=== PATIENT | male | born 1965 | race Caucasian/White ===

== ENCOUNTER 2021-09-14 07:59 | Emergency (ER) | payer BC, SELFPAY ==
[2021-09-14 08:03] VITALS: BP 138/92; PULSE 71; RESP 16; TEMP 36.1; O2SAT 100
--- NOTE | 2021-09-14 08:56 | PC.NURSE ---
Dr. Nicole at bedside to assess pt.
--- NOTE | 2021-09-14 09:22 | ED.ANIMALBIT ---
HPI - Animal Bite General Chief Complaint: Animal Bite Stated Complaint: Animal Bite Time Seen by Provider: 09/14/21 08:59 Related Data Allergies Allergy/AdvReac Type Severity Reaction Status Date / Time Penicillins Allergy Unknown Unknown Verified 02/25/21 15:31 Review of Systems Review of Systems: Pt is a 56 y/o male, presents to ED with concerns he may need a rabies vaccination series after a dog bite to the left biceps region on Monday while attempting to stop a fight between his dog and another, healthy appearing lab. He was wearing a coat at the time of the bite. He had no break in the fabric of his coat. He did not notice that his arm was bleeding or had an injury until he arrived home. He had a tetanus booster yesterday. His encouraged him to seek evaluation today. Constitutional: Constitutional: Reports as per HPI Musculoskeletal: Musculoskeletal: Reports no additional musculoskeletal complaints and Reports as per HPI [facility] Past Medical History Medical History Benign essential HTN Chronic rhinosinusitis Diverticulosis Mixed hyperlipidemia Surgical History Surgical History (Updated 03/07/21 @ 20:08 by Yun May MD) Hx of colonoscopy 2015- repeat in 2025 Family History Family History Grandparent Family history of premature coronary heart disease, Onset Age: 50 Mother Family history of elevated blood lipids Social History Social History (Updated 03/07/21 @ 20:09 by Yun aMy MD) Social History: Smoking status: Former smoker Tobacco type: cigars Second hand tobacco smoke exposure: No Smoking end date: 03/03/17 Alcohol intake: current Alcohol use details: Occasionally Substance use: never Substance use type: does not use Additional occupation/education comments: gas engineer Gender identity (if verbalized by the patient): Male Sexual Orientation (if Verbalized by the Patient): Straight or Heterosexual Spiritual care concerns: No Agree to blood products: Yes Exam Narrative: alert, pleasant, non toxic, appearing, conversant Const: General: cooperative Nutritional Appearance: average body habitus Orientation/consciousness: oriented to person, oriented to place and oriented to time Limitations: no limitations HENMT: Head: normal to inspection Ears: hearing grossly normal bilaterally General nose exam: Normal external nose present Mouth: Yes Normal oral and palatal mucosa present Eyes: General: appearance normal, both eyes and all related structures Conjunctivae: conjunctivae normal Sclera: sclerae normal Neck: Neck: normal visual inspection and no meningeal signs Resp: Effort & Inspection: normal respiratory effort Auscultation: clear to auscultation bilaterally Cardio: Jugular venous distension: no JVD Rhythm: regular rhythm Heart sounds: S1 normal heart sound present and S2 normal heart sound present Peripheral pulses: Peripheral pulses 2+ throughout Skin: General skin exam: ecchymosis (pt has a 3 cm area of ecchymosis to the left medial biceps region) Lesions: other (a scabbed abrasion is noted at the center of the area of ecchymosis. ) Other: no drainage, no streaking, no erythema surrounding abrasion Course Course Emergency Course: Pt has called the health department and is advised rabies vaccinations are not indicated as he is considered low risk, given the provoked incident . He has since opted to decline the rabies series, noting his low risk exposure today Vital Signs Vital signs: Vital Signs Temperature 36.1 C L 09/14/21 08:03 Pulse Rate 71 09/14/21 08:03 Respiratory Rate 16 09/14/21 08:03 Blood Pressure 138/92 H 09/14/21 08:03 Pulse Oximetry 100 09/14/21 08:03 Temperature 36.1 C L 09/14/21 08:03 Pulse Rate 71 09/14/21 08:03 Respiratory Rate 16
[2021-09-14 09:52] VITALS: BP 147/105
== END 2021-09-14 09:52 | disposition home or self-care (01) ==
PROVIDERS: Emergency Provider Nurse Practitioner Family; PCP Family Medicine
DX: S41.152A Open bite of left upper arm, initial encounter (principal); S40.022A Contusion of left upper arm, initial encounter; I10 Essential (primary) hypertension; E78.2 Mixed hyperlipidemia; Z87.891 Personal history of nicotine dependence; W54.0XXA Bitten by dog, initial encounter
CPT/HCPCS: 99282

== ENCOUNTER → 2021-10-01 14:39 | Outpatient (CLI) | payer BC, SELFPAY ==
--- NOTE | ~2021-10-01 | US_ITS ---
EXAMINATION: US soft tissue upper back DATE: 10/01/2021 17:14 INDICATION: Left posterior thorax mass. TECHNIQUE: Multiple grayscale and Doppler ultrasound images of the left posterior thorax were obtaine d. COMPARISON: CT abdomen and pelvis 11/15/2018 FINDINGS: In the left posterior thorax, there is a 4.6 x 3.5 x 1.2 cm hyperechoic subcutaneous mass. IMPRESSION: 1. 4.6 cm hyperechoic subcutaneous mass in left posterior thorax, most likely a lipoma. Reviewed, dictated and finalized at location A.
== END ==
PROVIDERS: PCP Family Medicine; Visit Provider Nurse Practitioner Gerontology
DX: R22.9 Localized swelling, mass and lump, unspecified (principal)
CPT/HCPCS: 76604

== ENCOUNTER 2022-08-30 10:56 | Outpatient (CLI) | payer BC, SELFPAY ==
[2022-08-30 12:08] LABS: Basophils Absolute Auto 0.1 K/mm3 (0.0-0.1); Eosinophils Absolute Auto 0.3 K/mm3 (0-0.3); Eosinophils Percent Auto 4.3 % (0-4.4); Hematocrit 45.9 % (42.0-52.0); Hemoglobin 15.9 g/dL (14.0-18.0); Immature Granulocyte Absolute 0.01 K/mm3 (0.00-0.031); Immature Granulocyte Percent A 0.1 % (0-0.5); Lymphocytes Absolute Auto 2.35 K/mm3 (0.9-3.2); Lymphocytes Percent Auto 32.6 % (18.3-44.2); Mean Corpuscular HGB Conc 34.6 g/dl (32-36); Mean Corpuscular Hemoglobin 30.9 pg (26-34); Mean Corpuscular Volume 89.1 fl (80-100); Mean Platelet Volume 10.5 fl (7.4-10.4); Monocytes Absolute Auto 0.6 K/mm3 (0.1-0.6); Monocytes Percent Auto 7.8 % (2.6-8.5); Neutrophils Absolute Auto 3.9 K/mm3 (1.3-6.7); Neutrophils Percent Auto 54.2 % (45.5-73.1); Platelet Count Result 287 k/mm3 (150-375); Red Blood Count 5.15 M/mm3 (4.6-6.20); Red Cell Distribution Width 12.6 % (11.5-14.5); White Blood Count 7.2 K/mm3 (4.5-10.0)
[2022-08-30 12:18] LABS: Alanine Aminotransferase 51 U/L (6-50); Albumin Level 4.8 g/dL (3.5-5.1); Alkaline Phosphatase 80 U/L (38-126); Amylase 71 U/L (30-110); Anion Gap 8 mmol/L (8-16); Aspartate Amino Transferase 42 U/L (17-59); Bilirubin,Total 0.7 mg/dL (0.2-1.3); Blood Urea Nitrogen 14 mg/dL (9-20); Calcium 9.3 mg/dL (8.4-10.2); Carbon Dioxide 31 mmol/L (22-30); Chloride 101 mmol/L (98-107); Estimated Glomerular Filt Rate > 60; Glucose 101 mg/dL (65-110); Lipase 71 U/L (23-300); Potassium 4.4 mmol/L (3.4-5.0); Sodium 140 mmol/L (137-145)
== END 2022-08-30 10:57 | disposition home or self-care (01) ==
LOC: ANHLAB 10:57
PROVIDERS: PCP Family Medicine; Visit Provider Nurse Practitioner Gerontology
DX: R10.9 Unspecified abdominal pain (principal)
CPT/HCPCS: 36415; 80053; 82150; 83690; 85025

== ENCOUNTER 2022-08-30 14:27 | Outpatient (CLI) | payer BC, SELFPAY ==
--- NOTE | ~2022-08-30 | CT_ITS ---
EXAMINATION: CT abdomen pelvis wo con DATE: 08/30/2022 14:46 INDICATION: Abdominal pain. Blood in stool. TECHNIQUE: Computed tomography (CT) of the abdomen and pelvis was performed without intravenous contr ast. Automated exposure control and iterative reconstruction technique were employed. The dose-length product was 543.67 mGy-cm. COMPARISON: CT abdomen and pelvis 11/15/2018 FINDINGS: The visualized portions of the lung bases are clear without pneumonia or pleural effusion. The heart size is normal. No pericardial effusion. There are cysts in the liver measuring up to 3.8 c m. The gallbladder, pancreas, spleen, and adrenal glands are normal. There are cysts in right kidney measuring up to 12 mm. There is a 14 mm mass in left kidney measuring soft tissue attenuation. There is no urolithiasis. The prostate is moderately enlarged. There is diverticulosis of the colon without evidence of diverticulitis. There are no dilated loops of bowel. The appendix is normal. There are n o pathologically enlarged lymph nodes. There is no free intraperitoneal fluid. There is severe lower lumbar spondylosis. There is moderate thoracic spondylosis. IMPRESSION: 1. No etiology for the patient's symptoms. 2. 14 mm left kidney mass, which may be a hemorrhagic cyst or less likely a neoplasm. Abdomen MRI wit hout and with contrast is recommended. Reviewed, dictated and finalized at location A. [facility]ER IMPRESSION: 1. No etiology for the patient's symptoms. 2. 14 mm left kidney mass, which may be a hemorrhagic cyst or less likely a meera plasm. Abdomen MRI without and with contrast is recommended.
== END 2022-08-30 14:28 ==
PROVIDERS: PCP Family Medicine; Visit Provider Family Medicine
DX: R10.9 Unspecified abdominal pain (principal); N28.89 Other specified disorders of kidney and ureter
CPT/HCPCS: 74176

== ENCOUNTER 2022-09-16 13:30 | Outpatient (CLI) | payer BC, SELFPAY ==
--- NOTE | ~2022-09-16 | MR_ITS ---
EXAMINATION: MR abdomen wo/w con DATE: 09/16/2022 14:27 INDICATION: Other specified disorders of kidney and ureter TECHNIQUE: Magnetic resonance imaging (MRI) of the abdomen was performed without and with 15 mL Multi beka intravenous contrast. Sequences included coronal T2-weighted SS-FSE, coronal and axial FS 2D-F IESTA, axial STIR FSE, axial T2-weighted SS-FSE, axial T2-weighted FS SS-FSE, axial diffusion-weighte d SE, axial dual-echo T1-weighted FSPGR, and axial and coronal T1-weighted LAVA. Postcontrast axial T 1-weighted LAVA images were obtained in a time course. Postcontrast coronal T1-weighted LAVA images w ere obtained. COMPARISON: CT dated 08/30/2022 FINDINGS: Heart size is normal. No pericardial or pleural effusion. There are multiple nonenhancing T2 hyperint ense hepatic and bilateral renal cysts . 1.7 cm nonenhancing T1 hyperintense T2 hypointense proteinac eous/hemorrhagic cyst at the upper pole of the left kidney. Pancreas, spleen and bilateral adrenal gl ands are normal. Visualized portion of the bowels are unremarkable. No pathologically enlarged abdomi nal or upper pelvic lymphadenopathy. Mild lumbar spondylosis with severe spondylosis at L5-S1. Bone marrow signal is normal throughout. IMPRESSION: 1. Multiple hepatic and renal cysts including a 1.7 cm complex proteinaceous/hemorrhagic cyst at the upper pole of the left kidney which correspond to the lesion of concern on prior CT. Reviewed, dictated and finalized at location B. IMPRESSION: 1. Multiple hepatic and renal cysts including a 1.7 cm complex proteinaceous/he morrhagic cyst at the upper pole of the left kidney which correspond to the les ion of concern on prior CT.
== END 2022-09-16 13:31 ==
PROVIDERS: PCP Family Medicine; Visit Provider Nurse Practitioner Gerontology
DX: N28.89 Other specified disorders of kidney and ureter (principal); N28.1 Cyst of kidney, acquired
CPT/HCPCS: 74183; A9577

== ENCOUNTER 2024-11-20 08:21 | Outpatient (CLI) | payer BC, SELFPAY ==
--- NOTE | ~2024-11-20 | MR_ITS ---
MRI of the abdomen: Clinical indication: Renal cyst COMPARISON: 09/16/2022. Technique: Coronal SSFSE ARC, WATER:coronal LAVA-FLEX, Coronal 2D FIESTA FatSat, Axial SSFSE BH ARC, Axial 3D DualEcho BH, Axial SSFSE-IR, Axial DWI b=500, Axial 2D FIESTA FatSat, pre and dynamic postco ntrast Axial LAVA ARC, postcontrast Coronal In and Opposed phase LAVA FLEX . Following intravenous ad ministration of 18 cc MultiHance gadolinium, T1-weighted fat-sat imaging was performed in the axial a nd coronal planes. Findings: Gallbladder unremarkable.. The common bile duct is normal in course and caliber. No filling defects are seen within the CBD. No evidence of intrahepatic biliary ductal dilatation. The pancreat ic duct is normal in size. Numerous hepatic cysts, especially in the left hepatic lobe, are stable from prior exam. Simple bilat eral renal cysts are unchanged. Stable probable hemorrhagic/proteinaceous cyst at the upper left isabella l pole, with mild T2 hypointensity and minimal T1 hyperintensity. Spleen, pancreas, adrenals, appear normal. The aorta and the paraaortic regions appear normal. Impression: Stable hemorrhagic/proteinaceous cyst at the left upper renal pole. Additional simple hepatic and bilateral renal cysts, essentially unchanged. Reviewed, dictated and finalized at [facility]. Impression: Stable hemorrhagic/proteinaceous cyst at the left upper renal pole. Additional simple hepatic and bilateral renal cysts, essentially unchanged.
--- OUTSIDE RECORDS SUMMARY | 2024-11-20 09:04 | XMS_ITS | Encounter Summary ---
Author Organization [facility] Health Address [address] [place] [address] Care Team Providers Care Fundraising Sale Representative Name Role Phone Unavailable Primary Care Provider Unavailabl e Encounter Details Date Type Department Care Team (Late st Contact Info) Description 11/18/2024 Lab Requisition [facility] - DermPath Lab [address] [facility] [place] [phone] Gina Ibrahim DO [address] [facility] [address] [place] [address] Social History Tobacco Use Types Packs/Day Years Used Date Smoking Tobacco: Never Assessed Sex and Gender Information Value Date Recorded Sex Assigned at Not on file 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
--- OUTSIDE RECORDS SUMMARY | 2024-11-20 09:04 | XMS_ITS | Clinical Summary ---
Author Organization [facility] Address [address] [place] [address] Care Team Providers Care Manager Strategic Development Name Role Phone Unavailable Primary Care Provider Unavailabl e Source Comments [facility],non-owned Affiliates and Associated Physician Practices is amultiple site organization consisting of ambulatory clinics and hospital sitesin [place], [place], [place] and [place]. This disclosure is being madepursuant to the Care Everywhere program and may not contain all information available regarding this patient. 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 Gender Identity Not on file Sexual Orientation Not on file Plan of Treatment Health Maintenance Due Date Last Done Comments COLOGUARD (AGES 45-75) - COL ON CA SCREENING 1966 COLON MONITORING 1966 COLONOSCOPY - COLON CA SCREENING 1966 CT COLONOGRAPHY - COLON CA SCREENING 1966 Colorectal Cancer Screening 1966 FIT - COLON CA SCREENING 1966 FLEX SIG - COLON CA SCREENING 1966 LIPID TESTING 1966 HIV SCREENING 1981 HEPATITIS C SCREENING 02/25/1984 DTAP/TDAP/TD VACCINES (1 - Tdap) 1985 HEPATITIS B VACCINE (1 of 3 - 19+ 3-dose series) 1985 PNEUMOCOCCAL VACCINE 50+ (1 of 1 - PCV) 2016 ZOSTER VACCINE (1 of 2) 2016 COVID-19 VACCINE (1 - 2023-2 5 season) 2024 DEPRESSION SCREENING 07/03/2024 INFLUENZA VACCINE (Season Ended) 2025 HIB VACCINE Aged Out No longer eligi ble based on patient's age to complete this topic HPV VACCINE Aged Out No longer eligi ble based on patient's age to complete this topic MENINGOCOCCAL (Group B) VACC INE SHARED DECISION-MAKING Aged Out No longer eligibl e based on patient's age to complete this topic MENINGOCOCCAL GROUPS A/C/Y/W VACCINE Aged Out No longer eligible b ased on patient's age to complete this topic Insurance ANTHEM
--- OUTSIDE RECORDS SUMMARY | 2024-11-20 09:04 | XMS_ITS | Encounter Summary ---
Author Organization [facility] Address [address] [place] [address] Care Team Providers Care Network/Telecom Engineer Name Role Phone Unavailable Primary Care Provider Unavailabl e Encounter Details Date Type Department Care Team (Late st Contact Info) Description 12/26/2022 Lab Requisition [facility] - DermPath Lab [address] [facility] [place] [address] Gina Ibrahim DO [address] [facility] [address] [place] [address] Social History Tobacco Use Types Packs/Day Years Used Date Smoking Tobacco: Never Assessed Sex and Gender Information Value Date Recorded Sex Assigned at Not on file 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 Gender Identity Not on file Sexual Orientation Not on file documented as of this encounter Plan of Treatment Not on file documented as of this encounter Procedures Procedure Name Priority Date/Time Associated Diagnosis Comments DERMATOPATHOLOGY Routine 12/26/2022 8:59 AM CDT documented in this encounter Results * DERMATOPATHOLOGY (12/26/2022 8:59 AM CDT) Case Report Dermatopathology Report Case: [id number] Authorizing Provider: Gina Ibrahim DO Collected: 12/26/2022 08:59 AM Ordering Location: [facility] DermPath Lab Received: 12/26/2022 02:54 PM Pathologist: Natalie Espitia MD Specimens: A) - Skin, left anti helix B) - Skin, left post neck 3 7:04 PM CDT DERMATOPATHOLOGY LABORATORY Final Diagnosis Specimen A. SKIN, left anti helix: ACTINIC KERATOSIS (L57.0) Specimen B. SKIN, left post neck: BASAL CELL CARCINOMA, NODULAR TYPE (C44.41) 3 7:04 PM CDT DERMATOPATHOLOGY LABORATORY at 1904 CDT Clinical History A: HAK R/O SCC B: Acneiform R/O NMSC 3 7:04 PM CDT DERMATOPATHOLOGY LABORATORY Gross Description Specimen A: Received is one formalin filled container labeled with the patient's name and designated left anti helix. The specimen consists of a shave biopsy measuring 4x2x1 mm. Jar 0. Specimen B: Received is one formalin filled container labeled with the patient's name and designated left post neck. The specimen consists of a shave biopsy measuring 5x3x1 mm. Jar 0. 3 7:04 PM CDT DERMATOPATHOLOGY LABORATORY Microscopic Description Specimen A. SKIN, left anti helix: There is focal parakeratosis. The lower half of the epidermis shows disorderly maturation of keratinocytes with nuclear pleomorphism. Specimen B. SKIN, left post neck: Within the dermis there are aggregates of basaloid cells with a high nuclear to cytoplasmic ratio and peripheral palisading. 3 7:04 PM CDT DERMATOPATHOLOGY LABORATORY Disclaimer An external and internal positive and negative controls are appropriate for the histochemical, immunohistochemical and immunofluorescence stain(s) in this case (if any), except where stated explicitly. The performance characteristics of the stain(s) cited in this report were developed and its performance characteristic determined by the Dermatopathology Laboratory at [facility], directed by Dr. Dar Maya. These tests need not be, and therefore are not, approved by the [place] Food and Drug Administration. The tests are used for clinical purposes. Billing Codes Specimen Charges Stain Charges 21674 15335 1 1 3 7:04 PM CDT DERMATOPATHOLOGY LABORATORY Embedded Images 3 7:04 PM CDT DERMATOPATHOLOGY LABORATORY Pathology/Cytology TISSUE SPECIMEN FROM SKIN / Unknown 12/26/2022 8:59 AM CDT 12/26/2022 2:54 PM CDT Miscellaneous samples (specimen) TISSUE SPECIMEN FROM SKIN / Unknown 12/26/2022 8:59 AM CDT 12/26/2022 2:54 PM CDT us Gina Ibrahim DO LAB - PATHOLOGY/CYTOLOGY ORDERABLES Final Result DERMATOPATHOLOGY LABORATORY [facility] - Department of Dermatology [facility] Medicine [address] [place] [address], [address] [phone] documented in this encounter Visit Diagnoses Not on filedocumented in this encounter
--- OUTSIDE RECORDS SUMMARY | 2024-11-20 09:04 | XMS_ITS | Encounter Summary ---
Author Organization [facility] Address [address] [place] [address] Care Team Providers Care Chef Saucier Name Role Phone Unavailable Primary Care Provider Unavailabl e Encounter Details Date Type Department Care Team (Late st Contact Info) Description 03/02/2023 Lab Requisition [facility] - DermPath Lab [address] [facility] [place] [address] Gina Ibrahim DO [address] [facility] [address] [place] [address] Social History Tobacco Use Types Packs/Day Years Used Date Smoking Tobacco: Never Assessed Sex and Gender Information Value Date Recorded Sex Assigned at Not on file 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 Gender Identity Not on file Sexual Orientation Not on file documented as of this encounter Plan of Treatment Not on file documented as of this encounter Procedures Procedure Name Priority Date/Time Associated Diagnosis Comments DERMATOPATHOLOGY Routine 03/02/2023 12:3 9 PM CDT documented in this encounter Results * DERMATOPATHOLOGY (03/02/2023 12:39 PM CDT) Case Report Dermatopathology Report Case: [id number] Authorizing Provider: Gina Ibrahim DO Collected: 03/02/2023 12:39 PM Ordering Location: [facility] DermPath Lab Received: 03/03/2023 06:47 AM Pathologist: Chelsea Ashraf MD Specimen: Skin, left post neck 1:36 PM CDT DERMATOPATHOLOGY LABORATORY Final Diagnosis Specimen A. SKIN, left post neck: DERMAL SCAR RESIDUAL BASAL CELL CARCINOMA NOT IDENTIFIED (L90.5) 1:36 PM CDT DERMATOPATHOLOGY LABORATORY at 1336 CDT Clinical History BCC BX PROVEN 3 1:36 PM CDT DERMATOPATHOLOGY LABORATORY Gross Description Specimen A: Received is one formalin filled container labeled with the patient's name and designated left post neck. The specimen consists of a non-oriented ellipse of skin measuring 27m93k6 mm. The epidermal surface is unremarkable. The margin is inked green. The 12 o'clock and 6 o'clock tips are submitted in cassette 1. The remainder of the ellipse is serially sectioned and submitted in cassette 2. Jar 0. 3 1:36 PM CDT DERMATOPATHOLOGY LABORATORY Microscopic Description Specimen A. SKIN, left post neck: There are fibroblasts and collagen bundles oriented parallel to the skin surface. There are elongated blood vessels, some of which are oriented perpendicular to the skin surface. No basal cell carcinoma is identified. 3 1:36 PM CDT DERMATOPATHOLOGY LABORATORY Disclaimer An external and internal positive and negative controls are appropriate for the histochemical, immunohistochemical and immunofluorescence stain(s) in this case (if any), except where stated explicitly. The performance characteristics of the stain(s) cited in this report were developed and its performance characteristic determined by the Dermatopathology Laboratory at [facility], directed by Dr. Dar Maya. These tests need not be, and therefore are not, approved by the [place] Food and Drug Administration. The tests are used for clinical purposes. Billing Codes Specimen Charges Stain Charges 91184 1 3 1:36 PM CDT DERMATOPATHOLOGY LABORATORY Embedded Images 3 1:36 PM CDT DERMATOPATHOLOGY LABORATORY Pathology/Cytolo gy TISSUE SPECIMEN FROM SKIN / Unknown 03/02/2023 12:39 PM CDT 03/03/2023 6:47 AM CDT us Gina Ibrahim DO LAB - PATHOLOGY/CYTOLOGY ORDERABLES Final Result DERMATOPATHOLOGY LABORATORY [facility] - Department of Dermatology [address] [place] [address], [facility] [phone] documented in this encounter Visit Diagnoses Not on filedocumented in this encounter
--- OUTSIDE RECORDS SUMMARY | 2024-11-20 09:04 | XMS_ITS | Continuity of Care Document ---
Author Name [facility] Organization [facility] Care Team Providers Care Sales Attendant Name Role Phone [facility] Unavailable Unavailable Immunizations Combined list of available immunizations from the Department of Defense and [facility] facilities. Immunization Series Date Given Administered By Site Reaction Lot Number CVX Code Drug Jeweler Apprentice Status Comments Source COVID-19 ([place]), MRNA, LNP-S, PF, 30 MCG/0.3 ML DOSE 2 2020 208 complet ed PFR; [id number]; 1 [facility] COVID-19 ([place]), MRNA, LNP-S, PF, 30 MCG/0.3 ML DOSE 1 2020 208 complet ed PFR; [id number]; 1 [facility] Encounters Combined list of: 1) Encounters from Department of Veterans Affairs facilities going backup to the last 18 months, not all VA inpatient encounters are included; 2) Encounters from the Department of [facility] facilities going backup to 280 months. Location Location Details Encounter Type Encounter Number Reason For Visit Attending Provider ADM Date DC Date Status Disposition Source [facility] Outpatient Encounter [id number] 12/12 [facility] Social History Combined list of available smoking, tobacco, and other social history from Department of Defense and [facility] facilities. Social History Type Response Date Comment Sourc e This section is an empty social history section. [facility]
== END 2024-11-20 08:22 | disposition home or self-care (01) ==
PROVIDERS: PCP Family Medicine; Visit Provider Urology
DX: N28.1 Cyst of kidney, acquired (principal)
CPT/HCPCS: 74183; A9577